=== PATIENT | male | born 1990 | race Two or more races ===

== ENCOUNTER 2017-07-12 18:56 | Emergency (ER) | payer OTHER ==
[~2017-07-12] VITALS: Ht 170.2 cm; Wt 90.7 kg
[2017-07-12 20:10] VITALS: BP 123/91
--- NOTE | 2017-07-12 20:10 | Emergency Room Report ---
History of Present Illness General Chief Complaint: Skin Rash/Abscess Source: Patient Present Illness HPI 27 YO Male presents to the ED c/o Swelling, tenderness and bruises with 7/10 in severity dull progressive ALDRICH to the left-side of his forehead with onset s/ p bike handle bars falling onto his head [employer]. Negative LOC. Patient reports some mild dizziness initially after the injury occurred however he states it quickly resolved and has not returned. Patient denies nausea or vomiting he denies taking blood thinning medications. He denies slurred speech or confusion. Denies numbness tingling or loss of sensation or gross motor movements of the extremities, incontinence of bowel or bladder. Denies CP, Palpitations, LOC, AMS, dizziness, Changes in Vision, Sensation, paresthesias, or a sudden severe headache Allergies: Coded Allergies: No Known Allergies (Unverified , 07/12/17) Patient History Past Medical History: see triage record Past Surgical History: none Pertinent Family History: none Immunizations: UTD Reviewed Nursing Documentation: PMH: Agreed, PSxH: Agreed Nursing Documentation-PMH Past Medical History: No History, Except For Review of Systems All Other Systems: negative except mentioned in HPI Physical Exam Vital Signs Date Time Temp Pulse Resp B/P (MAP) Pulse Ox O2 Delivery O2 Flow Rate FiO2 07/12/17 18:58 98.2 86 18 123/91 100 Room Air Sp02 EP Interpretation: reviewed, normal General Appearance: well appearing, no apparent distress, alert, GCS 15, non- toxic Head: normocephalic, other - 3cm palpable hematoma noted to the left side of the forehead. Eyes: bilateral eye normal inspection, bilateral eye PERRL, bilateral eye EOMI ENT: hearing grossly normal, normal voice, TMs + canals normal Neck: full range of motion, no bony tend Respiratory: lungs clear, normal breath sounds, speaking full sentences Cardiovascular #1: regular rate, rhythm Rectal: deferred Musculoskeletal: back normal, gait/station normal, normal range of motion, non- tender Neurologic: alert, oriented x3, responsive, motor strength/tone normal, sensory intact, cerebellar normal, normal gait, speech normal, no pronator, grossly normal Skin: no rash, warm/dry, well hydrated, hematoma - 3cm palpable hematoma to left side of the forehead. Medical Decision Making PA Attestation Dr. Foreman is my supervising Physician whom patient management has been discussed with. 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 Negative LOC. Patient reports some mild dizziness initially after the injury occurred however he states it quickly resolved and has not returned. Patient denies nausea or vomiting he denies taking blood thinning medications. He denies slurred speech or confusion. Denies numbness tingling or loss of sensation or gross motor movements of the extremities, incontinence of bowel or bladder. Denies CP, Palpitations, LOC, AMS, dizziness, Changes in Vision, Sensation, paresthesias, or a sudden severe headache Ddx considered but are not limited to Fracture, dislocation, contusion, concussion Sprain/Strain/Spasm, hematoma Vital signs: are WNL, pt. is afebrile H&PE are most consistent with contusion, no evidence of focal neurological deficit, no loss of consciousness. ORDERS: none required at this time. PE and HPI do not indicate CT at this time. ED INTERVENTIONS: -D/w Pt. reasoning for not doing Head CT, also discussed red flag symptoms to keep an eye out for that would indicate prompt return to the ED. - Pt. and responsible republican verbalize their understanding and agreement with proposed treatment plan. DISCHARGE: At this time pt. is stable for d/c to home. Will provide printed patient care instructions, and any necessary prescriptions. Care plan and follow up instructions have been discussed with the patient prior to discharge. Last Vital Signs Date Time Temp Pulse Resp B/P (MAP) Pulse Ox O2 Delivery O2 Flow Rate FiO2 07/12/17 18:58 98.2 86 18 123/91 100 Room Air Disposition: HOME, SELF-CARE Condition: Stable Scripts Acetaminophen* (TYLENOL EXTRA STRENGTH*) 500 Mg Tablet 500 MG ORAL Q6H Y for For Pain, #20 TAB 0 Refills Prov: Sallie Burkett 07/12/17 Patient Instructions: Head Injury, Adult, [id number], Hematoma, [id number] Additional Instructions: Take medications as directed. Follow up with a Primary Care Provider in 3-5 days, even if your symptoms have resolved. --Please review list of primary care clinics, if you do not already have a primary care provider Return sooner to ED if new symptoms occur, or current symptoms become worse. - Please note that this Emergency Department Report was dictated using [employer] worker technology software, occasionally this can lead to erroneous entry secondary to interpretation by the dictation equipment. Sallie Burkett Jul 12, 2017 20:10
[2017-07-12] MEDS ORDERED: TYLENOL EXTRA500 MG ORAL (20:11)
[2017-07-12 20:20] VITALS: BP 123/91
== END 2017-07-12 20:20 | disposition home or self-care (01) ==
LOC: EMR 20:00
DX: S00.83XA Contusion of other part of head, initial encounter (principal); W22.8XXA Striking against or struck by other objects, initial encounter; Y92.89 Other specified places as the place of occurrence of the external cause
CPT/HCPCS: 99283